=== PATIENT | female | born 1955 | race Caucasian/White ===

== ENCOUNTER → 2017-07-23 | Outpatient (CLI) | payer MEDICARE ==
--- NOTE | 2017-07-23 10:59 | US ---
EXAMINATION TYPE: US duplex aorta DATE OF EXAM: 07/23/2017 COMPARISON: 01/10 US CLINICAL HISTORY: I71.4 abdominal aortic aneurysm. prior abnormal abd us that showed aneurysmal aorta EXAM MEASUREMENTS: Abdominal Aorta: Proximal: 3.5cm Mid: 2.6cm Distal: 2.6cm Bifurcation: 1.0cm and 0.9cm Overall the aorta is ectatic, demonstrates mild plaque and is lobular in appearance with mural plaqui ng. Good color flow and spectral waveform. IMPRESSION: Aneurysmal dilatation of the proximal aorta measured up to 3.9 x 3.5 cm with normal calib er of the mid aorta and fusiform ectasia at the bifurcation measuring up to 2.6 cm. Moderate atheroma tous mural plaquing is seen throughout.
== END | disposition home or self-care (01) ==
LOC: RADUSWWP 10:06 → MERGE 10:20
PROVIDERS: ATTEND Family Medicine
DX: I71.2 Thoracic aortic aneurysm, without rupture (principal); I70.0 Atherosclerosis of aorta
CPT/HCPCS: 93979

== ENCOUNTER → 2018-01-01 | Outpatient (CLI) | payer MEDICARE ==
--- NOTE | 2018-01-01 09:18 | ECHOF ---
Referral Reason:I71.4 AAA without rupture,R01.1 Murmur MEASUREMENTS -------- HEIGHT: 172.7 cm WEIGHT: 93.9 kg BP: 186/99 IVSd: 2.2 cm (0.6 - 1.1) LVIDd: 3.7 cm (3.9 - 5.3) LVPWd: 1.6 cm (0.6 - 1.1) IVSs: 2.4 cm LVIDs: 1.7 cm LVPWs: 1.7 cm LAESV Index (A-L): 26.47 ml/m Ao Diam: 2.8 cm (2.0 - 3.7) AV Cusp: 1.9 cm (1.5 - 2.6) LA Diam: 2.0 cm (2.7 - 3.8) MV EXCURSION: 15.618 mm (> 18.000) MV EF SLOPE: 32 mm/s (70 - 150) EPSS: 0.6 cm MV E Jeramie: 0.59 m/s MV DecT: 196 ms MV A Jeramie: 1.03 m/s MV E/A Ratio: 0.57 AR PHT: 522 ms RAP: 5.00 mmHg RVSP: 13.29 mmHg FINDINGS -------- Sinus rhythm. This was a technically good study. The left ventricular size is normal. There is severe concentric left ventricular hypertrophy. Ove rall left ventricular systolic function is normal with, an EF between 55 - 60 %. The right ventricle is normal in size and function. The left atrium is normal in size. The right atrium is normal in size. Aortic valve is trileaflet and is mildly thickened. There is mild aortic regurgitation. The mitral valve is normal. Mild mitral regurgitation is present. Mild tricuspid regurgitation present. The right ventricular systolic pressure, as measured by Doppl er, is 13.29mmHg. There is no pulmonic regurgitation present. The aortic root size is normal. Normal inferior vena cava with normal inspiratory collapse consistent with estimated right atrial pre ssure of 5 mmHg. The pericardium is normal. CONCLUSIONS -------- 1. Sinus rhythm. 2. This was a technically good study. 3. There is severe concentric left ventricular hypertrophy. 4. Overall left ventricular systolic function is normal with, an EF between 55 - 60 %. 5. The left atrium is normal in size. 6. Aortic valve is trileaflet and is mildly thickened. 7. There is mild aortic regurgitation. 8. Mild mitral regurgitation is present. 9. Mild tricuspid regurgitation present. 10. The right ventricular systolic pressure, as measured by Doppler, is 13.29mmHg. 11. There is no pulmonic regurgitation present. 12. The aortic root size is normal. 13. Normal inferior vena cava with normal inspiratory collapse consistent with estimated right atrial pressure of 5 mmHg. 14. The pericardium is normal. [facility] SPECIALIST: Kelly Ferrara RDCS
--- NOTE | 2018-01-01 09:37 | US ---
EXAMINATION TYPE: US duplex aorta DATE OF EXAM: 01/01/2018 COMPARISON: Prior abdominal ultrasound July 23, 2017 CLINICAL HISTORY: I71.4 AAA without rupture,R01.1 Murmur. EXAM MEASUREMENTS: Abdominal Aorta: Proximal: 3.5cm Mid: 2.2cm Distal: 2.5cm Bifurcation: Rt. 1.3cm Lt. 1.0cm Proximal aorta measures 3.6 AP x 3.7cm transversely IMPRESSION: Aneurysm of the proximal abdominal aorta measures up to 3.7 cm transversely on current st udy likely stable from prior accounting for technical differences.
== END | disposition home or self-care (01) ==
LOC: RADECHMAIN 08:35
PROVIDERS: ATTEND Family Medicine
DX: I71.4 Abdominal aortic aneurysm, without rupture (principal); I08.3 Combined rheumatic disorders of mitral, aortic and tricuspid valves
CPT/HCPCS: 93306; 93979

== ENCOUNTER → 2019-04-01 | Outpatient (CLI) | payer MEDICARE ==
--- NOTE | 2019-04-02 12:18 | MM ---
Reason for exam: screening (asymptomatic). Last mammogram was performed 4 years ago. History: Patient is postmenopausal. Family history of breast cancer in maternal aunt and breast cancer in maternal grandmother. Physical Findings: A clinical breast exam by your physician is recommended on an annual basis and results should be correlated with mammographic findings. MG 3D Screening Mammo W/Cad Bilateral CC and MLO view(s) were taken. XCCL view(s) were taken of the right breast. Prior study comparison: April 03, 2015, mammogram, performed at [facility]. July 29, 2013, mammogram, performed at [facility]. There are scattered fibroglandular densities. There is no discrete abnormality. No significant changes when compared with prior studies. ASSESSMENT: Negative, BI-RAD 1 RECOMMENDATION: Routine screening mammogram of both breasts in 1 year.
== END | disposition home or self-care (01) ==
LOC: RADMAMWWP 14:39
PROVIDERS: ATTEND Family Medicine
DX: Z12.31 Encounter for screening mammogram for malignant neoplasm of breast (principal)
CPT/HCPCS: 77063; 77067

== ENCOUNTER → 2019-06-24 | Outpatient (CLI) | payer MEDICARE ==
--- NOTE | 2019-06-30 10:45 | P.ARTDOP ---
Arterial Doppler LOWER EXTREMITY ARTERIAL DOPPLER: DATE OF SERVICE: 06/24/2019 coldness Reason for study: Cold and numb toes. Doppler waveforms: Multiphasic bilaterally throughout. Pulse volume recording: []. Pressure gradients: None. Ankle-brachial indices: Greater than 1 bilaterally. Toe pressures: [] on the right, [] on the left Impression: Normal study.
== END | disposition home or self-care (01) ==
LOC: RADUSWWP 12:51
PROVIDERS: ATTEND Family Medicine
DX: I73.9 Peripheral vascular disease, unspecified (principal)
CPT/HCPCS: 93922

== ENCOUNTER → 2019-08-12 | Outpatient (CLI) | payer MEDICARE ==
--- NOTE | 2019-08-12 13:06 | US ---
EXAMINATION TYPE: US abdomen complete DATE OF EXAM: 08/12/2019 COMPARISON: US CLINICAL HISTORY: N28.1 Multiple renal cysts. History of Thoracic Aorta aneurysm repair 2018; AAA, li lainey cysts, gallbladder removed. EXAM MEASUREMENTS: Liver Length: 15.8 cm Gallbladder Wall: surgically removed CBD: 0.3 cm Spleen: 8.6 cm Right Kidney: 11.2 x 5.9 x 4.8 cm Left Kidney: 11.4 x 5.3 x 4.7 cm Pancreas: wnl as visualized Liver: multiple hepatic cysts with largest in right lobe = 6.8 x 5.5 x 5.7cm ; complex area of cys ts near tanya hepatis = 2.0 x 2.5 x 1.6cm Gallbladder: surgically absent Evidence for sonographic Peterson's sign: no CBD: wnl Spleen: wnl Right Kidney: superolateral cortical cyst is seen = 1.4 x 1.4 x 1.8cm Left Kidney: couple of renal cysts seen with largest at mid lateral cortex = 2.0 x 1.8 x 1.6cm Upper IVC: wnl Abd Aorta: widening noted at upper aorta = 3.8cm in Transverse view; ectatic appearance noted mid an d distally, and intimal wall thickening is also noted . The liver is homogenous. The intrahepatic portion of the IVC and proximal abdominal aorta are within normal limits. There is no evidence of cholelithiasis. Common bile duct is unremarkable. The visu alized portions of the pancreas are homogenous. The spleen is unremarkable. Kidneys are symmetric a nd free of hydronephrosis. No solid renal lesions are seen. IMPRESSION: 1. Renal and hepatic simple cysts. 2. Abdominal aortic aneurysm.
== END | disposition home or self-care (01) ==
LOC: RADUSWWP 10:28
PROVIDERS: ATTEND Family Medicine
DX: N28.1 Cyst of kidney, acquired (principal); K76.89 Other specified diseases of liver; I71.4 Abdominal aortic aneurysm, without rupture
CPT/HCPCS: 76700

== ENCOUNTER → 2019-10-02 | Outpatient (CLI) | payer MEDICARE, OTHER ==
--- NOTE | 2019-10-02 09:42 | CT ---
EXAMINATION TYPE: CT sinus wo con DATE OF EXAM: 10/02/2019 COMPARISON: None HISTORY: Chronic sinusitis CT DLP: [address] of the paranasal sinuses was performed in the axial and coronal planes. Bone and soft tissue settings are submitted. The paranasal sinuses demonstrate normal aeration and development. Mild mucosal thickening of the ethmoid air cells. Minimal mucosal thickening right maxillary sinus. M inimal mucosal thickening sphenoid sinus. Remaining paranasal sinuses are well-aerated. The osteal meatal units are patent bilaterally. The nasal septum is midline. No bony destructive changes are seen within the field of view. IMPRESSION: Chronic sinusitis as discussed.
== END | disposition home or self-care (01) ==
LOC: RADCTMAIN 07:03
PROVIDERS: ATTEND Family Medicine
DX: J32.9 Chronic sinusitis, unspecified (principal)
CPT/HCPCS: 70486

== ENCOUNTER → 2020-11-21 | Outpatient (CLI) | payer MEDICARE ==
--- NOTE | 2020-11-27 10:48 | MM ---
Reason for exam: screening (asymptomatic). Last mammogram was performed 1 year and 8 months ago. History: Patient is postmenopausal. Family history of breast cancer in maternal aunt and breast cancer in maternal grandmother. Physical Findings: A clinical breast exam by your physician is recommended on an annual basis and results should be correlated with mammographic findings. MG 3D Screening Mammo W/Cad Bilateral CC, MLO, and XCCL view(s) were taken. Prior study comparison: April 01, 2019, bilateral MG 3d screening mammo w/cad. April 03, 2015, mammogram, performed at [facility]. There are scattered fibroglandular densities. No significant changes when compared with prior studies. ASSESSMENT: Negative, BI-RAD 1 RECOMMENDATION: Routine screening mammogram of both breasts in 1 year.
== END | disposition home or self-care (01) ==
LOC: RADMAMWWP 12:06
PROVIDERS: ATTEND Family Medicine
DX: Z12.31 Encounter for screening mammogram for malignant neoplasm of breast (principal)
CPT/HCPCS: 77063; 77067

== ENCOUNTER → 2024-11-26 | Outpatient (CLI) | payer MEDICARE ==
[2024-11-26 11:51] LABS: African American GFR (CKD) >90 (>60 ml/min/1.73 sqM); Anion Gap 10 mmol/L; Blood Urea Nitrogen 15 mg/dL (7-17); Calcium 10.5 mg/dL (8.4-10.2); Carbon Dioxide 27 mmol/L (22-30); Chloride 92 mmol/L (98-107); Glucose 161 mg/dL (74-99); Non-African American GFR(CKD) 88 (>60 ml/min/1.73 sqM); Sodium 129 mmol/L (137-145)
--- NOTE | 2024-11-26 14:04 | CT ---
EXAMINATION TYPE: CT angio chest CT DLP: 1417 mGycm, Automated exposure control for dose reduction was used. 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 3D reconstructed images are created on an independent workstation and reviewed.. FINDINGS: Lungs/Pleura: No evidence of focal consolidation, pleural effusion or pneumothorax. Mild centrilobula r emphysematous changes. Right upper lobe 6.7 mm pulmonary nodule (series 10, image 29). Airway: Large airways are patent. Heart: Heart is within normal limits for size.. Small coronary artery calcifications. No pericardial effusion. Vasculature: Atherosclerotic calcifications aorta and its branches. Tortuosity of the descending thor acic aorta. No evidence for intramural hematoma or dissection. 4 vessel aortic arch without significa nt stenosis. Ectasia and aortic root measuring up to 3.8 cm. The ascending thoracic aorta is normal i n size measuring up to 3.0 cm. There is dilatation thoracic aorta measuring 4.0 cm just after the griselda gin of the left common carotid artery. Aneurysm dilatation of descending thoracic aorta measuring up to 4.8 cm at the hiatus. Bilobed infrarenal abdominal aortic aneurysm measuring up to 4.2 cm approxim ately and 3.2 cm distally. There is some eccentric mural thrombus within the superior aspect of the a bdominal aorta. The SMA and celiac axis are widely patent. The single right renal artery is widely pa tent. The 2 left renal arteries are patent. The FANTASMA is widely patent. The visualized portions of the bilateral common iliac arteries are patent with moderate atherosclerotic plaque. No significant steno sis. The visualized portions of the internal and external iliac arteries are patent with mild atheros clerotic plaque. Mediastinum: No gross evidence of adenopathy. Musculoskeletal: No acute osseous abnormalities. Median sternotomy wires. Bilateral shoulder arthropa thy. Multilevel degenerative changes of the visualized spine. Soft Tissues: Unremarkable. Lower neck: No significant findings. Upper Abdomen: Bilateral renal cysts with additional bilateral renal hyperdense cortical likely prote inaceous/hemorrhagic cyst. Anastomosis involving the colon within the right abdomen. Gallbladder is s urgically absent. Multiple hepatic cysts. IMPRESSION: 1. No evidence for acute process. 2. Thoracic aortic aneurysm at the arch measuring up to 4.0 cm just after the origin of the left comm on carotid artery. There is aneurysmal dilatation of the tortuous descending thoracic aorta measuring up to 4.8 cm of the hiatus. Additionally there is a bilobed infrarenal abdominal aortic aneurysm hailey suring up to 4.2 cm and 3.2 cm. No evidence for intramural hematoma or dissection of the aorta. 3. Mild CPPD changes. 4. Right upper lobe 6.7 mm pulmonary nodule. Follow-up CT chest in 6-12 months is recommended. [facility], , 11/26/2024 2:01 PM
== END | disposition home or self-care (01) ==
LOC: RADCTMAIN 10:56
PROVIDERS: ATTEND Internal Medicine
DX: I71.03 Dissection of thoracoabdominal aorta (principal); I25.10 Atherosclerotic heart disease of native coronary artery without angina pectoris; Z98.890 Other specified postprocedural states; Z86.79 Personal history of other diseases of the circulatory system; I71.20 Thoracic aortic aneurysm, without rupture, unspecified; I71.43 Infrarenal abdominal aortic aneurysm, without rupture; R91.1 Solitary pulmonary nodule
CPT/HCPCS: 80048; 71275; 36415; Q9967